=== PATIENT | male | born 1980 | race Native Hawaiian/Other Pacific Islander ===

== ENCOUNTER 2016-07-18 09:48 | Emergency (ER) | payer OTHER ==
[2016-07-18 09:52] VITALS: BP 139/78; PULSE 88; TEMP 98.2; O2SAT 96; BMI 22.3
[2016-07-18 10:15] VITALS: RESP 19
[2016-07-18] MEDS ORDERED: RABIES VACCINE 2.5 U PDR IM ONE (10:36)
[2016-07-18] MEDS ORDERED: Rabies Immune Globulin 150 INTLU/ML VIAL IM ONE ×2 (10:36→11:15)
--- NOTE | 2016-07-18 10:38 | ED PDOC ---
HPI: Skin/Bite Injury Time Seen by Provider: 07/18/16 10:14 Chief Complaint (Nursing): Bite Chief Complaint (Provider): Skin bite History Per: Patient History/Exam Limitations: no limitations Onset/Duration Of Symptoms: Days Current Symptoms Are (Timing): Still Present Location Of Injury: Right: Forearm, Anterior: Forearm Quality Of Symptoms: Itching Severity: Mild Additional History Per: Patient Additional Complaint(s): The pt is a 35yo male, presents to the ED for evaluation of a possible animal bite on his right anterior forearm. [place]. He denies any direct contact with animals ay animal bites tat he remembers. Pt reports he is here today because of suspicion that he may not have noticed something and wants to take precautions against rabies. Pt denies any itching or pain to his "bite". Pt currently offers no additional medical complaints. Past Medical History Reviewed: Historical Data, Nursing Documentation, Vital Signs Vital Signs: Last Vital Signs Temp 98.2 F 07/18/16 10:09 Pulse 88 07/18/16 10:09 Resp 19 07/18/16 10:09 BP 139/78 07/18/16 10:09 Pulse Ox 96 07/18/16 10:48 - Medical History PMH: No Chronic Diseases - Surgical History Surgical History: No Surg Hx - Family History Family History: States: No Known Family Hx - Home Medications Home Medications: Ambulatory Orders Medication Instructions Recorded Famotidine [Pepcid] 20 mg PO BID #10 tab 12/28/15 Loperamide [Imodium] 2 mg PO ONCE #1 packet 12/28/15 Ondansetron [Zofran] 4 mg PO Q8H PRN #8 tab 12/28/15 - Allergies Allergies/Adverse Reactions: Allergies Allergy/AdvReac Type Severity Reaction Status Date / Time No Known Allergies Allergy Verified 12/28/15 17:24 Review of Systems ROS Statement: Except As Marked, All Systems Reviewed And Found Negative Skin: Positive for: Other (possible bite reed right forearm) Physical Exam - Reviewed Nursing Documentation Reviewed: Yes Vital Signs Reviewed: Yes - Physical Exam Appears: Positive for: Well, Non-toxic, No Acute Distress Head Exam: Positive for: ATRAUMATIC, NORMAL INSPECTION, NORMOCEPHALIC Skin: Positive for: Rash (3 small exchoriations noted in right anterior forearm. no erythema or swelling noted.) Respiratory: Negative for: Respiratory Distress Neurologic/Psych: Positive for: Alert, Oriented - ECG O2 Sat by Pulse Oximetry: 96 (RA) Pulse Ox Interpretation: Normal Medical Decision Making Medical Decision Making: Time: 1020 Impression: Low probability of rabies contraction w/o reported animal bite Plan: * Rabies Immunoglobulin * Rabies vaccine * Reassess * Procedure: IM injection. Immunoglobulin SQ IM injection is performed by automobile and property underwriter around the wound in infiltrative manner with 4 injections around the wound. * Scribe Attestation: Documented by Erma Short acting as a scribe for Rogelio Wilkinson MD. Provider Attestation: All medical record entries made by the Scribe were at my direction and personally dictated by me. I have reviewed the chart and agree that the record accurately reflects my personal performance of the history, physical exam, medical decision making, and the department course for this patient. I have also personally directed, reviewed, and agree with the discharge instructions and disposition. Disposition - Clinical Impression Clinical Impression: Animal bite wound, Rabies exposure - Patient ED Disposition Is Patient to be Admitted: No Doctor Will See Patient In The: Office Counseled Patient/Family Regarding: Studies Performed, Diagnosis, Need For Followup - Disposition Referrals: [facility] [Outside] Disposition: Routine/Home Disposition Time: 12:09 Condition: GOOD Additional Instructions: Return for vaccine shots on days 3, 7, and 14 counting today 07.18.2016 as day 0. Return for worsening or new symptoms immediately. Instructions: Rabies Immune Globulin (By injection), Rabies Vaccine (ED)
== END 2016-07-18 12:36 | disposition home or self-care (01) ==
LOC: H.ER 09:48 → SUPCPDRO 09:48 → H.ER 12:36
DX: Z20.3 Contact with and (suspected) exposure to rabies (principal)

== ENCOUNTER 2016-07-21 10:08 | Emergency (ER) | payer OTHER ==
[2016-07-21 10:08] VITALS: BMI 22.3
[2016-07-21 10:14] VITALS: BP 136/80; PULSE 62; RESP 20; TEMP 97.8
[2016-07-21 10:27] VITALS: O2SAT 98
--- NOTE | 2016-07-21 10:32 | ED PDOC ---
HPI: General Adult Time Seen by Provider: 07/21/16 10:32 Chief Complaint (Nursing): Rabies Vaccine Series Chief Complaint (Provider): rabies shot History Per: Patient Additional Complaint(s): 35 year old male presents to ED to receive second rabies vaccine in series. Patient was started on series 3 days ago after sustaining possible bat exposure. Patient denies any side effects from previous vaccination and offers no acute complaints upon arrival to ED today. Patient states tetanus is up-to- date. Past Medical History Reviewed: Historical Data, Nursing Documentation, Vital Signs Vital Signs: Last Vital Signs Temp 97.8 F 07/21/16 10:13 Pulse 62 07/21/16 10:13 Resp 20 07/21/16 10:13 BP 136/80 07/21/16 10:13 Pulse Ox 98 07/21/16 11:16 - Medical History PMH: No Chronic Diseases - Family History Family History: States: No Known Family Hx - Living Arrangements Living Arrangements: With Family - Social History Current smoker - smoking cessation education provided: No Alcohol: None Drugs: Denies - Immunization History Hx Tetanus Toxoid Vaccination: Yes - Home Medications Home Medications: Ambulatory Orders Medication Instructions Recorded Famotidine [Pepcid] 20 mg PO BID #10 tab 12/28/15 Loperamide [Imodium] 2 mg PO ONCE #1 packet 12/28/15 Ondansetron [Zofran] 4 mg PO Q8H PRN #8 tab 12/28/15 - Allergies Allergies/Adverse Reactions: Allergies Allergy/AdvReac Type Severity Reaction Status Date / Time No Known Allergies Allergy Verified 07/21/16 10:25 Review of Systems ROS Statement: Except As Marked, All Systems Reviewed And Found Negative Constitutional: Positive for: Other (here for 2nd vaccine in rabies series). Negative for: Fever Physical Exam - Reviewed Nursing Documentation Reviewed: Yes Vital Signs Reviewed: Yes - Physical Exam Appears: Positive for: Well, Non-toxic, No Acute Distress Skin: Negative for: Rash Eye Exam: Positive for: Normal appearance Cardiovascular/Chest: Positive for: Regular Rate, Rhythm Respiratory: Positive for: Normal Breath Sounds. Negative for: Respiratory Distress Neurologic/Psych: Positive for: Alert, Oriented - ECG O2 Sat by Pulse Oximetry: 98 Pulse Ox Interpretation: Normal Medical Decision Making Medical Decision Makin35 year old male here for rabies vaccine, 2nd injection in series IM vaccine administered, tolerated well by patient. Patient advised to return for next vaccine in series as per schedule given. Disposition - Clinical Impression Clinical Impression: Need for rabies vaccination - Patient ED Disposition Is Patient to be Admitted: No Counseled Patient/Family Regarding: Diagnosis, Need For Followup - Disposition Referrals: [facility] [Outside] Disposition: Routine/Home Disposition Time: 11:03 Condition: STABLE Additional Instructions: Return to ED for next rabies vaccine in series as per vaccine schedule. Instructions: Rabies Vaccine (By injection)
[2016-07-21] MEDS ORDERED: RABIES VACCINE 2.5 U PDR IM ONE (11:30)
== END 2016-07-21 12:19 | disposition home or self-care (01) ==
LOC: H.ER 10:08
DX: Z23 Encounter for immunization (principal)

== ENCOUNTER 2016-07-25 10:11 | Emergency (ER) | payer OTHER ==
[2016-07-25 10:12] VITALS: BMI 22.3
[2016-07-25 10:19] VITALS: BP 154/87; PULSE 70; RESP 16; O2SAT 100
[2016-07-25 10:26] VITALS: TEMP 97.6
[2016-07-25] MEDS ORDERED: RABIES VACCINE 2.5 U PDR IM ONE (10:26)
--- NOTE | 2016-07-25 10:46 | ED PDOC ---
HPI: General Adult Time Seen by Provider: 07/25/16 10:15 Chief Complaint (Nursing): Bite Chief Complaint (Provider): rabies shot History Per: Patient Additional Complaint(s): pt returns to ED for third rabies vaccination after possible animal bite one week ago. denies other c/o. Past Medical History Reviewed: Historical Data, Nursing Documentation, Vital Signs Vital Signs: Last Vital Signs Temp 97.6 F 07/25/16 10:22 Pulse 70 07/25/16 10:18 Resp 16 07/25/16 10:18 BP 154/87 H 07/25/16 10:18 Pulse Ox 100 07/25/16 10:18 - Medical History PMH: No Chronic Diseases - Family History Family History: States: No Known Family Hx - Social History Current smoker - smoking cessation education provided: No Alcohol: None Drugs: Denies - Immunization History Hx Tetanus Toxoid Vaccination: Yes - Home Medications Home Medications: Ambulatory Orders Medication Instructions Recorded Famotidine [Pepcid] 20 mg PO BID #10 tab 12/28/15 Loperamide [Imodium] 2 mg PO ONCE #1 packet 12/28/15 Ondansetron [Zofran] 4 mg PO Q8H PRN #8 tab 12/28/15 - Allergies Allergies/Adverse Reactions: Allergies Allergy/AdvReac Type Severity Reaction Status Date / Time No Known Allergies Allergy Verified 07/21/16 10:25 Review of Systems ROS Statement: Except As Marked, All Systems Reviewed And Found Negative Physical Exam - Reviewed Nursing Documentation Reviewed: Yes Vital Signs Reviewed: Yes - Physical Exam Appears: Positive for: Well, Non-toxic, No Acute Distress Skin: Positive for: Normal Color, Warm, DRY Extremity: Positive for: Normal ROM. Negative for: Tenderness Neurologic/Psych: Positive for: Alert, Oriented. Negative for: Motor/Sensory Deficits - ECG O2 Sat by Pulse Oximetry: 100 Medical Decision Making Medical Decision Making: will administer rabies vaccine. to return in one week for final injection. Disposition - Clinical Impression Clinical Impression: Need for rabies vaccination - Patient ED Disposition Is Patient to be Admitted: No - Disposition Referrals: [facility] [Outside] Disposition: Routine/Home Disposition Time: 10:47 Condition: GOOD Instructions: Rabies Vaccine (By injection)
== END 2016-07-25 11:06 | disposition home or self-care (01) ==
LOC: H.ER 10:11
DX: Z23 Encounter for immunization (principal)

== ENCOUNTER 2016-08-01 10:07 | Emergency (ER) | payer OTHER ==
[2016-08-01 10:07] VITALS: BMI 22.3
[2016-08-01 10:12] VITALS: BP 118/76; PULSE 70; O2SAT 98
[2016-08-01] MEDS ORDERED: RABIES VACCINE 2.5 U PDR IM ONE (10:21)
--- NOTE | 2016-08-01 10:30 | ED PDOC ---
HPI: General Adult Time Seen by Provider: 08/01/16 10:20 Chief Complaint (Provider): rabies vaccine History Per: Patient Additional Complaint(s): Patient is here for rabies vaccine. This is the 4th in series of injections. He offers no acute complaints. Past Medical History Reviewed: Historical Data, Nursing Documentation, Vital Signs Vital Signs: Last Vital Signs Temp Pulse 70 08/01/16 10:11 Resp BP 118/76 08/01/16 10:11 Pulse Ox 98 08/01/16 10:32 - Medical History PMH: No Chronic Diseases - Surgical History Surgical History: No Surg Hx - Family History Family History: States: No Known Family Hx - Living Arrangements Living Arrangements: With Family - Social History Current smoker - smoking cessation education provided: No Alcohol: None Drugs: Denies - Immunization History Hx Tetanus Toxoid Vaccination: Yes - Home Medications Home Medications: Ambulatory Orders Medication Instructions Recorded Famotidine [Pepcid] 20 mg PO BID #10 tab 12/28/15 Loperamide [Imodium] 2 mg PO ONCE #1 packet 12/28/15 Ondansetron [Zofran] 4 mg PO Q8H PRN #8 tab 12/28/15 - Allergies Allergies/Adverse Reactions: Allergies Allergy/AdvReac Type Severity Reaction Status Date / Time No Known Allergies Allergy Verified 07/21/16 10:25 Review of Systems ROS Statement: Except As Marked, All Systems Reviewed And Found Negative Constitutional: Positive for: Other (here for rabies vaccine). Negative for: Fever Physical Exam - Reviewed Nursing Documentation Reviewed: Yes Vital Signs Reviewed: Yes - Physical Exam Appears: Positive for: Well, Non-toxic, No Acute Distress Skin: Negative for: Rash Eye Exam: Positive for: Normal appearance Cardiovascular/Chest: Positive for: Regular Rate, Rhythm Respiratory: Positive for: Normal Breath Sounds Neurologic/Psych: Positive for: Alert, Oriented - ECG O2 Sat by Pulse Oximetry: 98 Pulse Ox Interpretation: Normal Medical Decision Making Medical Decision Makin35 year old here for rabies vaccine IM vaccine given in ED. Patient instructed to return in 1 week for the last vaccine in series. Disposition - Clinical Impression Clinical Impression: Need for rabies vaccination - Patient ED Disposition Is Patient to be Admitted: No Counseled Patient/Family Regarding: Need For Followup - Disposition Referrals: [facility] [Outside] Disposition: Routine/Home Disposition Time: 10:36 Condition: STABLE Additional Instructions: Return 1 week from today for last vaccine in series. Instructions: Rabies Vaccine (By injection)
== END 2016-08-01 11:48 | disposition home or self-care (01) ==
LOC: H.ER 10:07
DX: Z23 Encounter for immunization (principal)